=== PATIENT | female | born 1980 | race Caucasian/White ===

== ENCOUNTER 2025-06-27 05:51 | Day surgery (SDC) | payer OTHER ==
[2025-06-25 11:32] LABS: Hematocrit 40.9 % (34.9-44.5); Hemoglobin 14.1 g/dL (12.0-15.5); Mean Corpuscular Hemoglobin 30.4 pg (27.0-33.0); Mean Corpuscular Volume 88.1 fL (81.6-98.3); Platelet Count 297 10x3/uL (150-450); Red Blood Cell (RBC) Count 4.64 10x6/uL (3.90-5.03); White Blood Cell (WBC) Count 11.80 10x3/uL (3.5-10.5)
[2025-06-25 11:51] LABS: BHCG - Serum Negative (NEGATIVE); Pregs Control Background? CLEAR/WHITE (CLR/WHITE); Pregs Control Bar Appear? YES (CONTROL BAR)
[2025-06-27] MEDS ORDERED: Gabapentin 300 MG CAP ONE (06:42)
[2025-06-27] MEDS ORDERED: Famotidine/PF 20 mg/2ml Vial ONE (06:42)
[2025-06-27] MEDS ORDERED: Rocuronium Bromide 10 MG/ML (10ML VIAL) ONE (06:46)
[2025-06-27] MEDS ORDERED: SUGAMMADEX SODIUM 200 MG/2 ML VIAL ONE (06:46)
[2025-06-27] MEDS ORDERED: PROPOFOL 40 ML ONE (06:46)
[2025-06-27] MEDS ORDERED: Ondansetron PF 4 MG/2 ML Vial ONE (06:46)
[2025-06-27] MEDS ORDERED: Lidocaine 1% PF 5 ML VIAL ONE (06:46)
[2025-06-27] MEDS ORDERED: Bupivacaine HCl 0.5%/Epinephrine 1:200,000/PF 30 ml Vial ONE (07:07)
[2025-06-27] MEDS ORDERED: CEFAZOLIN 2 GM VIAL ONE (07:23)
[2025-06-27] MEDS ORDERED: PHENYLEPHRINE-NS 100 MCG/ML 10 ML SYRINGE ONE (07:59)
[2025-06-27] MEDS ORDERED: HYDROmorphone 0.5 MG/0.5 ML SYRINGE ONE (09:36)
[2025-06-27] MEDS ORDERED: oxyCODONE 5 MG TAB ONE (10:18)
== END 2025-06-27 12:20 | disposition home or self-care (01) ==
LOC: CSHSDC 05:51
PROVIDERS: ATTEND Obstetrics & Gynecology
PROC: 0UT94ZZ Resection of Uterus, Percutaneous Endoscopic Approach (ICD-10-PCS; principal; 2025-06-27)
DX: N92.0 Excessive and frequent menstruation with regular cycle (principal); N83.01 Follicular cyst of right ovary; N87.9 Dysplasia of cervix uteri, unspecified; N94.6 Dysmenorrhea, unspecified; N80.33 Superficial endometriosis of the pelvic sidewall; N88.8 Other specified noninflammatory disorders of cervix uteri; D26.1 Other benign neoplasm of corpus uteri; N73.6 Female pelvic peritoneal adhesions (postinfective); D50.8 Other iron deficiency anemias
CPT/HCPCS: 36415; 84703; 85027; 86850; 86900; 86901; 88305; 88307; J1100; J1171; J2250; J2704; S2900